=== PATIENT | female | born 1995 | race Caucasian/White ===

== ENCOUNTER 2019-05-08 10:42 | Observation (INO) | payer MEDICAID ==
[~2019-05-08] VITALS: Ht 165.1 cm; Wt 84.8 kg
[2019-05-10] MEDS ORDERED: PNV1TABL50 PO (02:48)
[2019-05-13] MEDS ORDERED: IBUP-2028 PO (02:21)
== END 2019-05-08 14:05 | disposition home or self-care (01) ==
LOC: 8 EST LDRP 10:42
PROVIDERS: ADMIT Obstetrics & Gynecology; ATTEND Obstetrics & Gynecology
DX: O62.9 Abnormality of forces of labor, unspecified (principal); O26.893 Other specified pregnancy related conditions, third trimester; R51 Headache; Z3A.40 40 weeks gestation of pregnancy
CPT/HCPCS: 76815; 76818; 99281; G0378